=== PATIENT | male | born 1980 | race Two or more races ===

== ENCOUNTER 2025-09-08 09:15 | Emergency (ER) | payer OTHER, MEDICARE ==
[~2025-09-08] VITALS: Ht 188 cm; Wt 89.6 kg
[~2025-09-08 09:15] MED LIST: AMIT25TA2 OR; BACL10TA2 OR; CELE1CAP4 OR; CLAR5CHW PO; COLA100C2 OR; COMBO CREAM TOP; IMIT100T OR; NEXI20CA PO; PROP40TA OR; SKEL800T5 OR; VENTAER IN; VICO5TAB PO; ZANA4CAP OR; androgel TOP; rozerem PO
[2025-09-08] MEDS ORDERED: METH-1164 PO (09:26)
[2025-09-08] MEDS ORDERED: TEST200I14 INJ (09:26)
[2025-09-08 09:57] LABS: BASO # 0.1 10^3/uL (0.0-0.2); BASO % 0.8 % (0.0-1.0); EOS # 0.4 10^3/uL (0.0-0.5); EOS % 5.5 % (0.0-3.0); LYMPH # 2.2 10^3/uL (1.5-5.0); LYMPH % 27.9 % (24.0-44.0); MONO # 1.0 10^3/uL (0.0-0.8); MONO % 13.0 % (2.0-8.0); NEUTROPHILS # 4.1 10^3/uL (1.5-8.5); NEUTROPHILS % 52.5 % (36.0-66.0); PLATELET COUNT, AUTOMATED 309 10^3/uL (150-450)
[2025-09-08 10:18] LABS: CK-MB VALUE MASS < 1.0 NG/ML (<3.6)
[2025-09-08 10:21] LABS: FREE T4 1.57 NG/DL (0.89-1.76)
[2025-09-08 10:22] LABS: ALT/SGPT 36 U/L (7.0-40); AST/SGOT 16 U/L (<34); CALCIUM LEVEL 9.2 MG/DL (8.5-10.1); CARBON DIOXIDE LEVEL 26 MMOL/L (20-31); CHLORIDE LEVEL 107 MMOL/L (98-107); CREATININE FOR GFR 1.19 MG/DL (0.70-1.30); GLOMERULAR FILTRATION RATE 77.7 (>60); POTASSIUM SERUM 4.2 MMOL/L (3.5-5.1); SODIUM LEVEL 143 MMOL/L (136-145)
[2025-09-08 10:26] LABS: INR 0.92
[2025-09-08 10:37] LABS: CPK CREATINE PHOSPHOKINASE 59 U/L (46-171)
[2025-09-08] MEDS ORDERED: VENTAER INH (11:17)
[2025-09-08] MEDS ORDERED: HOME MED LIST COMPLETE! XX SCH (11:20)
[2025-09-08 11:21] LABS: CK-MB VALUE MASS < 1.0 NG/ML (<3.6)
[2025-09-08 11:23] LABS: CPK CREATINE PHOSPHOKINASE 51 U/L (46-171)
[2025-09-08] MEDS ORDERED: ISOVUE-370 76% 100 ML VIAL As Ordered ONE (11:33)
[2025-09-08] MEDS: IPRATROPIUM 0.5 MG/ALBUTEROL 2.5 MG INH SOL UD 3 ML NEB ONE (11:35)
[2025-09-08] MEDS: ALBUTEROL SULFATE 2.5 MG/0.5 ML INH CONCENTRATE NEB SOLN INH ONE (11:35)
[2025-09-08] MEDS ORDERED: PRED20TA PO (13:33)
[2025-09-08 14:26] VITALS: BP 132/61; TEMP 97.8; O2SAT 98
== END 2025-09-08 14:28 | disposition home or self-care (01) ==
LOC: M ED 09:15
DX: J45.909 Unspecified asthma, uncomplicated (principal); B34.1 Enterovirus infection, unspecified; F17.290 Nicotine dependence, other tobacco product, uncomplicated; F12.10 Cannabis abuse, uncomplicated; Z79.51 Long term (current) use of inhaled steroids; Z79.52 Long term (current) use of systemic steroids; Z79.890 Hormone replacement therapy; Z79.899 Other long term (current) drug therapy
CPT/HCPCS: 71045; 71275; 80047; 80048; 80076; 82550; 82553; 83690; 84439; 84443; 84484; 85025; 85610; 85730; 87486; 87581; 87633; 87798; 93005; 93041; 94640; 94760; 96374; 99285; J2919; Q9967